=== PATIENT | male | born 1930 | race Caucasian/White ===

== ENCOUNTER → 2016-05-13 | Outpatient (CLI) | payer OTHER, MEDICARE ==
--- NOTE | 2016-05-13 16:25 | DX ---
Lumbar spine, 2 views History: Elevated PSA, new focal uptake in the anteroinferior lumbar spine at approximately L4-L5. Comparison: Bone scan from the same day. Findings: There is moderate to severe vertebral spondylosis at L4-L5 and L5-S1, with prominent left anterior osteophytes at L4-L5, which likely account for the finding on bone scan. No sclerotic osseou s lesions are identified. Levoscoliosis of the thoracolumbar junction is present. There is 3 mm anter olisthesis of L3 on L4. Mild to moderate vertebral spondylosis is present at L2-L3 and L3-L4. Moderat e facet hypertrophy is present from L3 through S1. Vertebral body heights are preserved. Prostatectom y clips are noted. Impression: Prominent anterior osteophytes at L4-L5 eccentric to left, accounting for the uptake on bone scan with no appreciable osseous metastases.
--- NOTE | 2016-05-13 16:35 | NM ---
Nuclear Medicine Whole Body Bone Scan at 1356 hours Indication: Prostate cancer staging, elevated PSA. Technique: 23.1 mCi technetium 99m MDP were injected intravenously. Delayed images of the skeleton were obtained in anterior and posterior projections. Comparison: Bone scan May 18, 2007, lumbar spine film May 13, 2016 at 1529 hours (performed s ubsequent to bone scan). Findings: Uptake eccentric to the left at the anterior aspect of L4-L5 corresponds to prominent oste ophytes seen on the plain film performed subsequently the same day. No definite osseous metastases a re identified. Degenerative change, right greater than left, is again noted in the shoulders, with d egenerative change in the region of the left distal radial ulnar joint as well as in the 1st carpomet acarpal joints bilaterally, and in the knees, right greater than left. Mild degenerative uptake is p resent in the cervical spine. Renal and bladder uptake is normal. Impressions 1. No definite evidence of metastatic disease. 2. Multifocal degenerative change, including focal anterior lumbar degenerative change, subsequently demonstrated on a plain film this same day. E:galen
== END ==
LOC: FIMAGING 10:39
PROVIDERS: ATTEND Urology
DX: C61 Malignant neoplasm of prostate (principal)
CPT/HCPCS: 72100; 78306; A9503

== ENCOUNTER → 2017-04-21 | Outpatient (CLI) | payer OTHER, MEDICARE | LOC: FIMAGING 09:24 | PROVIDERS: ATTEND Urology | DX: Z08 Encounter for follow-up examination after completed treatment for malignant neoplasm (principal); Z85.49 Personal history of malignant neoplasm of other male genital organs | CPT/HCPCS: 78306; A9503 ==

== ENCOUNTER 2018-02-23 17:32 | Emergency (ER) | payer OTHER, MEDICARE ==
--- NOTE | 2018-02-23 17:50 | EDPHY ---
HPI/HX/ROS/PE/MDM Narrative: CHIEF COMPLAINT: C-spine fracture, fall HISTORY OF PRESENT ILLNESS: This patient is an 87 year old male who presents at the request of his primary care provider for further evaluation of a possible odontoid fracture noted on CT earlier this afternoon. The patient [place] forward [place] . He has had persistent neck pain since then. He denies any loss of consciousness. When he turns his head, his pain increased. Driving home, he complained of increased pain driving over bumps in the road. He denies any numbness or paresthesias in his extremities. No headache or shortness of breath. Due to persistent discomfort today, he had a CT at Dr. Louise's office this afternoon. The radiologist reported likely fracture of odontoid and he presents for further evaluation. No fever, chills, chest pain, shortness of breath, palpitations, vomiting, diarrhea, urinary complaints, headache, lightheadedness. REVIEW OF SYSTEMS: A comprehensive 10 system review of systems is otherwise negative aside from elements mentioned in the history of present illness and medical decision making. PAST MEDICAL HISTORY: Prostate cancer. Blepharospasm. Patient reports he has no ligaments in his shoulders. History of EGD. Colon resection. SOCIAL HISTORY: . at bedside. Nonsmoker. No alcohol use. VITAL SIGNS: Reviewed by me GENERAL: Well-developed, well-nourished, resting comfortably in no respiratory distress. HEENT: Ecchymosis under both eyes. Abrasions and ecchymosis to bridge of nose. Eyes: No icterus, no injection. PERRL, EOMI. Mouth: moist mucous membranes. No erythema or lesions. Neck: Not initially in a collar. Patient moving neck during my initial evaluation; reports pain with movement. Placed in a [place] collar immediantly. Midline tendernss at high cervical spine. LUNGS: Clear to auscultation bilaterally, no wheezes, rhonchi or rales. CARDIAC: Regular rate and rhythm, no rubs, murmurs or gallops. ABDOMEN: Soft, nontender, nondistended, bowel sounds normal. BACK: No CVA tenderness. EXTREMITIES: No trauma. No edema. Range of motion is normal throughout. NEURO: Alert and oriented, sensation intact to light touch, motor 5/5. reports no parethesias. Gait normal per patient and . SKIN: Warm and dry, no rash. PSYCHIATRIC: Normal mentation, no agitation. Portions of this note were transcribed by a medical transcription editor. I personally performed a history, physical exam, medical decision making, and confirmed accuracy of information the transcribed note. ED Course: 87 y/o male presents with neck pain following a fall yesterday. CT this afternoon suspicious for fracture at C2, patient referred here for further evaluation. Patient placed in c-collar. Plan for noncontrast MRI of cervical spine. 18:10 Spoke with SETH Lawler for Dr. Louise. 19:[address] Gibbs, radiologist. MRI c-spine shows a midbody nondisplaced fracture 15m from the tip of the odontoid with associated edema around C1/C2. Additionally there is DJD from C4-T1/T2 with mild stenosis. Discussed findings with patient and . Patient remains neurologically intact. 19:[address] Toledo, neurosurgeon. He reviewed films and provided these recommendations: [facility] to fit patient with [place] J or Rex collar. Patient to wear at all times. Follow up with Dr Toledo at the end of the week. Discussed at length that patient needs to wear collar at all times. Patient and his informed of the significance of this injury and the importance of the medical and neurosurgical management and recommendations. *Dr Toledo had asked for plain films to be taken after patient placed in collar by [facility]. [facility] arrived at 10:30pm and at this late time, obtaining plain films was overlooked by myself. MDM: Diff dx of patients presenting complaint considered but not limited to fracture , spinal cord abnormality, ligamentous injury, unstable cervical spine fracture , muscle sprain. - Data Points Imaging Results: MRI Cervical Spine: Impression: 1. Acute nondisplaced fracture of the midbody of the odontoid with associated posterior interspinous ligament tears. 2. Multilevel moderate to severe degenerative disk disease, worst from C4-C5 through C6-C7, with multilevel moderate to severe bilateral facet arthropathy, resulting in mild to moderate central canal stenosis and moderate to severe bilateral neural foraminal stenosis as described above. 3. No cord compression or edema. 4. No epidural hematoma. 5. Recommend neurosurgery consult. Please see above findings at specific disk levels. Findings and recommendations discussed with Emergency Department physician, Dr. Audra Fuller at 1910 hours on February 23, 2018. Final report concurs with initial preliminary interpretation. Dictated By: Giovanni Gibbs Imaging: Discussed imaging studies w/ callisthenics instructor Radiologist Medications Given: Discontinued Medications Hydrocodone Bitart/Acetaminophen ([place] 5/325) 1 tab PO EDNOW ONE Stop: 02/23/18 21:00 Last Admin: 02/23/18 21:27 Dose: Not Given Cyclobenzaprine HCl (Flexeril) 10 mg PO EDNOW ONE Stop: 02/23/18 21:00 Last Admin: 02/23/18 21:52 Dose: Not Given Verapamil HCl (Calan) 120 mg PO EDNOW ONE Stop: 02/23/18 21:06 Last Admin: 02/23/18 21:42 Dose: 120 mg General Time Seen by Provider: 02/23/18 17:44 Initial Vital Signs: Initial Vital Signs Temperature (C) 36.4 C 02/23/18 17:39 Heart Rate 64 02/23/18 17:39 Respiratory Rate 18 02/23/18 17:39 Blood Pressure 165/64 H 02/23/18 17:39 O2 Sat (%) 93 02/23/18 17:39 O2 Delivery Mode Room Air Allergies/Adverse Reactions: No Known Allergies Allergy (Unverified 02/23/18 17:38) Home Medications: Medication Instructions Recorded Acetaminophen [Tylenol Tablet] 325 mg PO PRN 10/09/11 Bicalutamide [Casodex (RX)] 50 mg PO .2 DAYS PER WK 10/09/11 Cholecalciferol Vit D3 [Vitamin D 1,000 units PO DAILY 10/09/11 1000 units (OTC)] Diazepam [Valium 5 MG (RX)] 2.5 mg PO PRN 10/09/11 Gemfibrozil 600 mg PO DAILY06 10/09/11 Glucosamine/Chondroitin Sulf A 15 ml PO DAILY06 10/09/11 [Glucosamine-Chondroitin Liq] Levothyroxine [Synthroid 125 mcg 125 mcg PO DAILY06 10/09/11 (RX)] Multivitamins [Tab-A-Amber] 1 each PO DAILY06 10/09/11 Naproxen Sodium [Aleve] 220 mg PO PRN 10/09/11 Pharmacy Completed 10/09/11 10/09/11 [place]-3 Fatty Acids 3,000 mg PO DAILY06 10/09/11 [Fish Oil 500 mg Softgel] Verapamil [Calan 40MG (RX)] 80 mg PO BID 10/09/11 cycloSPORINE 0.05% [Restasis (RX)] 1 each EACHEYE BID 10/09/11 Hydrocodone Bit/Acetaminophen 1 tab PO Q4-6PRN PRN #15 tab 10/12/12 [Vicodin 5/500] Departure - Departure Disposition: Home, Routine, Self-Care Clinical Impression: Odontoid fracture Qualifiers: Encounter type: initial encounter Fracture type: closed Qualified Code(s): S12.100A - Unspecified displaced fracture of second cervical vertebra, initial encounter for closed fracture Condition: Good Instructions: Cervical Fracture (ED) Additional Instructions: Wear your drop wire hanger brace as directed. Follow up with Dr. Toledo, neurosurgeon, within one week. Return to the emergency department immediately for severe pain, numbness, weakness, tingling, headache, difficulty walking or other complaints. Referrals: Ty Louise MD [Primary Care Provider] - As per Instructions Germán Toledo MD [Medical Doctor] - As per Instructions Report Scribed for: Audra Fuller Report Scribed by: Zeenat Abreu Date of Report: 02/23/18 Time of Report: 19:26
[2018-02-23] MEDS ORDERED: HYDROCODONE/APAP 5/325 TAB PO ONE (20:59)
[2018-02-23] MEDS ORDERED: CYCLOBENZAPRINE 10 MG TAB PO ONE (20:59)
[2018-02-23] MEDS ORDERED: VERAPAMIL 120 MG TAB PO ONE (21:05)
[2018-02-23 22:24] VITALS: BP 178/88
== END 2018-02-23 22:22 | disposition home or self-care (01) ==
DX: S12.101A Unspecified nondisplaced fracture of second cervical vertebra, initial encounter for closed fracture (principal); S13.9XXA Sprain of joints and ligaments of unspecified parts of neck, initial encounter; M47.9 Spondylosis, unspecified; M50.321 Other cervical disc degeneration at C4-C5 level; M48.02 Spinal stenosis, cervical region; W19.XXXA Unspecified fall, initial encounter; Y92.828 Other wilderness area as the place of occurrence of the external cause

== ENCOUNTER 2018-05-10 21:39 | Observation (INO) | payer OTHER, MEDICARE ==
--- NOTE | 2018-05-10 22:08 | EDPHY ---
H & P Stated Complaint: No BM since friday, tried enema/mag citrate at home, bowel resection Time Seen by Provider: 05/10/18 21:54 HPI/ROS: Chief Complaint: Constipation HPI: 87-year-old male is presenting with constipation. Patient states he had his last normal bowel movement 3 days ago. Patient states he has felt constipated today. He took 2 cup fulls of MiraLax at 11:00 this morning. A 2: 00 afternoon he drink a bottle magnesium citrate without any relief. He has also used a fleets enema an used ducolocs suppositories without any relief. He does have the sensation of fullness in his rectal area. No abdominal pain. No nausea or vomiting. Does have a history of a bowel resection many years ago. No history of bowel obstructions in the past. Is currently wearing a cervical collar for a C2 fracture sustained in February. Is not on any narcotic pain medications. No fevers or chills. No diarrhea. ROS: 10 systems were reviewed and were negative except those elements noted in the HPI. PMH: C2 fracture, bowel resection, prostate cancer Social History: No smoking, no alcohol, no recreational drug use Family History: non-contributory Physical Exam: Gen: Awake, Alert, No Distress HEENT: Nose: no rhinorrhea Eyes: PERRLA, EOMI Mouth: Moist mucosa Neck: Supple, no JVD Chest: nontender, lungs clear to auscultation Heart: S1, S2 normal, no murmur Abd: Soft, non-tender, no guarding Rectal: Soft stool high in his rectum Back: no CVA tenderness, no midline tenderness Ext: no edema, non-tender Skin: no rash Neuro: CN II-XII intact, Sensation grossly intact, Strength 5/5 in bilateral upper and lower extremities - Personal History Current Tetanus Diphtheria and Acellular Pertussis (TDAP): Yes Tetanus Vaccine Date: UNKNOWN BUT HAS BEEN LAST 10 YEARS - Medical/Surgical History Hx Asthma: No Hx Chronic Respiratory Disease: No Hx Diabetes: No Hx Cardiac Disease: No Hx Renal Disease: No Hx Cirrhosis: No Hx Alcoholism: No Hx HIV/AIDS: No Hx Splenectomy or Spleen Trauma: No Other PMH: prostate CA, severe dry eyes, shoulder atrophy bilateral, bad knees, C2 broke - Social History Smoking Status: Former smoker Constitutional: Initial Vital Signs Temperature (C) 36.7 C 05/10/18 21:45 Heart Rate 74 05/10/18 21:45 Respiratory Rate 19 05/10/18 21:45 Blood Pressure 145/69 H 05/10/18 21:45 O2 Sat (%) 94 05/10/18 21:45 O2 Delivery Mode Room Air Allergies/Adverse Reactions: No Known Allergies Allergy (Unverified 05/10/18 21:41) Home Medications: Medication Instructions Recorded Acetaminophen [Tylenol Tablet] 325 mg PO PRN 10/09/11 Bicalutamide [Casodex (RX)] 50 mg PO .2 DAYS PER WK 10/09/11 Cholecalciferol Vit D3 [Vitamin D 1,000 units PO DAILY 10/09/11 1000 units (OTC)] Diazepam [Valium 5 MG (RX)] 2.5 mg PO PRN 10/09/11 Gemfibrozil 600 mg PO DAILY06 10/09/11 Glucosamine HCl/Chondroitin [place] 15 ml PO DAILY06 10/09/11 [Glucosamine-Chondroitin Liq] Levothyroxine [Synthroid 125 mcg 125 mcg PO DAILY06 10/09/11 (RX)] Multivitamins [Tab-A-Amber] 1 each PO DAILY06 10/09/11 Naproxen Sodium [Aleve] 220 mg PO PRN 10/09/11 Pharmacy Completed 10/09/11 10/09/11 [place] Oil/[place]-3 Fatty Acids 3,000 mg PO DAILY06 10/09/11 [Fish Oil 500 mg Softgel] Verapamil [Calan 40MG (RX)] 80 mg PO BID 10/09/11 cycloSPORINE 0.05% [Restasis (RX)] 1 each EACHEYE BID 10/09/11 Hydrocodone Bit/Acetaminophen 1 tab PO Q4-6PRN PRN #15 tab 10/12/12 [Vicodin 5/500] Medical Decision Making - Diagnostics Imaging Results: Imaging Impressions Abdomen X-Ray 05/10/18 23:19 Impression: 1. Constipation/obstipation with air and fecal material noted from the level of the cecum to the rectosigmoid. 2. Sequela of prior remote prostatectomy and pelvic lymph node dissection. 3. Surgical clips overlying the lateral left abdomen, with a prior remote history of surgery for diverticulitis. 4. Air distention of the distal thoracic esophagus, with a prior history of achalasia. ED Course/Re-evaluation: 87-year-old male with constipation. Patient has soft stool-his rectum. He has some pain on rectal exam and did not tolerate attempted disimpaction in his refer the proceed further. Two attempts at high soapsuds enemas have been not effective. I think he needs further medications from above. Discussed with Dr. Boyd on-call for Dr. Louise. She will admit to their service for further care. Departure - Departure Disposition: [facility] Inpatient Acute Clinical Impression: Constipation Condition: Fair
[2018-05-11] MEDS ORDERED: ONDANSETRON DISINTEGRATING 4 MG TAB PO PRN ×2 (01:17→02:45)
[2018-05-11] MEDS ORDERED: ACETAMINOPHEN 325 MG TAB PO PRN ×2 (01:17→02:45)
[2018-05-11] MEDS ORDERED: ONDANSETRON 4 MG/2 ML VIAL IVP PRN ×2 (01:17→02:45)
[2018-05-11] MEDS ORDERED: MAGNESIUM HYDROXIDE 30 ML UDCUP PO PRN (01:18)
[2018-05-11] MEDS ORDERED: BISACODYL 10 MG SUPP PR PRN (01:18)
[2018-05-11] MEDS ORDERED: POLYETHYLENE GLYCOL 3350 17 GM PKT PO PRN (01:18)
[2018-05-11] MEDS ORDERED: LACTULOSE 20 GM/30 ML UDCUP PO PRN (01:18)
[2018-05-11 01:36] LABS: PLATELET COUNT 278 10^3/uL (150-400)
--- NOTE | 2018-05-11 02:30 | SOAPPROG ---
SOAP Progress Note Assessment/Plan: Assessment: Plan: 05/11/18 02:37 Constipation: significant constipation throughout colon. Has been leaking liquid stool but no significant BM. Will try polyethylene glycol. Hyponatremia: mild. Will give NS IV Elevated WBC: hx elevated WBC in past. Will recheck as no suggestion infection Hypertension: on verapamil CAD: most recent heart scan with 16% rate of change. On fish oil, niacin, aged garlic Hypothyroid: on replacement with recent dose increase Prostate cancer: on Casodex, lupron DVT prophylaxis: JEFFERY cardenas Dispo: admit to obs 05/11/18 02:42 Subjective: 87 yo male with hx CAD, hypertension, prior bowel resection for diverticulitis, and constipation has been constipated for the last 3 days. Last BM 05/07/17. On 05/08, started eating prunes, apricots, drinking a lot of water and walking. Had no BM, so today did an enema, Mg citrate, and dulcolax without success so came to ED. Has a sensation of stool high up in his rectum but can't feel it with his finger. Abdomen feels full, and feels nauseated but no vomiting. Abdomen isn't tender, but does hurt when he tries to push. In ED, KUB shows stool from the cecum to the rectosigmoid. No free air. Was given two soap enemas without success, so he is being admitted for more aggressive treatment. Objective: Vital Signs Temp Pulse Resp BP Pulse Ox 36.7 C 66 18 140/59 H 92 05/10/18 21:45 05/11/18 01:10 05/11/18 01:10 05/11/18 01:10 05/11/18 01:10 Laboratory Results 05/11/18 01:28 05/11/18 01:28 General: awake, alert, sitting on commode HEENT: PERRL, EOMI Neck: cervical collar in place due to C2 fracture a few months ago Lungs: clear bilaterally, no wheezing, rales Cardiovascular: RRR no murmur Abdomen: diminished bowel sounds, soft, NT Musculoskeletal: no joint swelling, erythema Skin: no rash Extremities: no edema Neurologic: alert, oriented, moving all extremities Psychiatric: frustrated, no agitation ICD10 Worksheet Patient Problems: Problems Problem Status Onset Constipation Acute Odontoid fracture Acute
[2018-05-11] MEDS ORDERED: NS 1,000 ML IV SCH (02:45)
[2018-05-11] MEDS ORDERED: PEG 3350/NA SULF,BICARB,CL/KCL (GAVILYTE-G) 4000 ML BTL PO ONE (02:48)
--- NOTE | 2018-05-11 03:57 | GHP ---
DATE OF ADMISSION: 05/11/2018 HISTORY OF PRESENT ILLNESS: The patient is an 87-year-old male with a history of coronary artery disease, hypertension, prior bowel resection for diverticulitis, and constipation, who has been constipated for the last 3 days. His last bowel movement was May 07, 2017. On May 08, he started eating prunes and apricots, drinking a lot of water, and walking, but he had no bowel movement, so today he did an enema, drank some magnesium citrate, and tried a Dulcolax suppository without success, so came to the emergency department. He has a sensation of stool high up in his rectum, but was not able to feel it with his fingers. Abdomen feels full and he feels nauseated, but has not vomited. Appetite is off. He has not had any fever or chills. His abdomen is not tender, but it does hurt when he tries to push to have a bowel movement. In the emergency department, his KUB shows stool from the cecum to the rectosigmoid. There is no free air. He was given 2 soap enemas without success , so he is being admitted for more aggressive treatment. PAST MEDICAL HISTORY: Obstructive sleep apnea, hypothyroidism, GERD, esophageal spasm, achalasia, coronary artery disease, constipation, hypertension , hyperlipidemia, prostate cancer, carpal tunnel syndrome. MEDICATIONS: Gemfibrozil 600 mg daily, vitamin D, multivitamin, aspirin 81 mg daily, magnesium, Slo-Niacin 500 mg daily, B12 1000 mcg daily, Casodex 50 mg once a day, Avodart 0.5 mg daily, Lupron every 3 months, Co-Q10 100 mg daily, Paxil 20 mg daily, levothyroxine 137 mcg daily, Biotin 10 mg daily, PreserVision , fish oil, Cosamin, chondroitin sulfate, melatonin, huperzine, omeprazole 20 mg daily. ALLERGIES: Linzess which causes a rash. SURGICAL HISTORY: Colon resection for diverticulitis, 2007; partial thyroidectomy in 1996; prostatectomy. FAMILY HISTORY: His father of gastric cancer. SOCIAL HISTORY: He is , is a former smoker and nondrinker. He is a retired aviation electrical technician. He has 3 grown children. REVIEW OF SYSTEMS: No fever or chills, but has felt somewhat clammy and hot. HEENT: No runny nose, sore throat. Does have some postnasal drip. RESPIRATORY : Chronic cough, nonproductive, related to his postnasal drip. No shortness of breath or wheezing. CARDIOVASCULAR: No chest pain or irregular heart rhythms. GI: Constipation as noted. Nausea. No vomiting. Decreased appetite. MUSCULOSKELETAL: No neck pain or joint pain. : Incontinent of urine. No dysuria. NEUROLOGIC: No headache, numbness, weakness, tingling. PSYCHIATRIC: Frustrated, but no agitation, depression. LABS: WBC 18.6, hemoglobin 14.3, hematocrit 40.7, platelets 278. Sodium 124, potassium 4.5, chloride 93, bicarb 20, BUN 19, creatinine 0.8, glucose 133, calcium 9.4. VITAL SIGNS: Temp 36.7, BP 140/59, pulse 66, respirations 18, O2 saturation 92% on room air. EXAM: He is awake and alert, sitting on the commode here in the emergency department. HEENT: Pupils are equal, round, reactive to light. Extraocular movements are intact. NECK: Cervical collar is in place due to C2 fracture a few months ago. Lungs are clear bilaterally without wheezing or rales. CARDIOVASCULAR: Regular rate and rhythm without murmur. Abdomen is soft with diminished bowel sounds. No tenderness. MUSCULOSKELETAL: No joint swelling or erythema. SKIN: No rash. EXTREMITIES: No edema. NEUROLOGIC: He is alert and oriented, moving all extremities. PSYCHIATRIC: Frustrated. No agitation. ASSESSMENT AND PLAN: 1. Constipation. Significant constipation throughout the colon. Has been leaking liquid stool, but no significant bowel movement. We will try polyethylene glycol. 2. Hyponatremia, mild. We will give normal saline IV. 3. Elevated white blood cell count. A history of elevated WBC in the past. We will recheck, as no suggestion of infection at this time. 4. Hypertension, on verapamil. 5. Coronary artery disease. Most recent heart scan with 16% rate of change, on fish oil and niacin, and aged garlic. Currently, asymptomatic. 6. Hypothyroid, on replacement with recent dose increase. 7. Prostate cancer, on Casodex, Lupron. 8. Deep venous thrombosis prophylaxis. JEFFERY cardensa. DISPOSITION: We will admit to observation. /[id number]/MODL MTDD
[2018-05-11 05:07] LABS: PLATELET COUNT 256 10^3/uL (150-400)
[2018-05-11] MEDS ORDERED: SENNOSIDES/DOCUSATE SODIUM TAB PO SCH (09:00)
[2018-05-11] MEDS ORDERED: ENOXAPARIN 30 MG/0.3 ML SYR SC SCH (09:00)
--- NOTE | 2018-05-11 09:01 | SOAPPROG ---
SOAP Progress Note Assessment/Plan: Assessment: Obstipation. Elevated WBC. Good BM this morning around 3:00 Plan: Will recheck WBC If coming down, will DC to home this afternoon. 05/11/18 08:58 Subjective: Feeling better. Had a reasonable BM this morning. No abdominal pain. Objective: Vital Signs Temp Pulse Resp BP Pulse Ox 98.5 F 65 15 139/69 H 94 05/11/18 07:34 05/11/18 07:34 05/11/18 07:34 05/11/18 07:34 05/11/18 07:34 Laboratory Results 05/11/18 04:50 05/11/18 04:50 05/10/18 05/11/18 05/12/18 05:59 05:59 05:59 Intake Total 250 500 Output Total 900 Balance 250 -400 Lungs clear. Bowel sounds OK. No abdominal tenderness. ICD10 Worksheet Patient Problems: Problems Problem Status Onset Constipation Acute Odontoid fracture Acute
--- NOTE | 2018-05-11 10:39 | ASMTCMCOM ---
CM Note CM Note Notes: Patient w history of CAD, HTN, and prior bowel resection admitted w 3 days of constipation unrelieved by home remedies. He will try polyethylene glycol and fluids. He is normally independent, lives in [place] w . I dont' anticipate any d/c needs. Current CM Discharge plan: independent Date Signed: 05/11/2018 10:38 AM Electronically Signed By:Carolin Greer RN
[2018-05-11 11:19] LABS: PLATELET COUNT 265 10^3/uL (150-400)
[2018-05-11 12:01] VITALS: BP 144/67
== END 2018-05-11 13:59 | disposition home or self-care (01) ==
LOC: F3N 05-11 02:33
PROVIDERS: ADMIT Student in an Organized Health Care Education/Training Program; ATTEND Internal Medicine
DX: K59.00 Constipation, unspecified (principal); E87.1 Hypo-osmolality and hyponatremia; D72.829 Elevated white blood cell count, unspecified; I25.10 Atherosclerotic heart disease of native coronary artery without angina pectoris; I10 Essential (primary) hypertension; G47.33 Obstructive sleep apnea (adult) (pediatric); E03.9 Hypothyroidism, unspecified; K21.9 Gastro-esophageal reflux disease without esophagitis; E78.5 Hyperlipidemia, unspecified; Z79.82 Long term (current) use of aspirin; Z79.899 Other long term (current) drug therapy; Z87.19 Personal history of other diseases of the digestive system; Z85.46 Personal history of malignant neoplasm of prostate; Z87.891 Personal history of nicotine dependence; Z80.0 Family history of malignant neoplasm of digestive organs; Z90.49 Acquired absence of other specified parts of digestive tract
CPT/HCPCS: 74019; 99285; G0378

== ENCOUNTER → 2018-05-21 | Outpatient (CLI) | payer OTHER, MEDICARE | LOC: FIMAGING 10:18 | PROVIDERS: ATTEND Internal Medicine Hematology & Oncology | DX: C61 Malignant neoplasm of prostate (principal); R93.7 Abnormal findings on diagnostic imaging of other parts of musculoskeletal system | CPT/HCPCS: 78306; A9503 ==

== ENCOUNTER → 2018-09-11 | Outpatient (CLI) | payer OTHER, MEDICARE | LOC: FIMAGING 09:12 | PROVIDERS: ATTEND Internal Medicine | DX: R13.10 Dysphagia, unspecified (principal); K22.8 Other specified diseases of esophagus ==